=== PATIENT | male | born 1960 | race Caucasian/White ===

== ENCOUNTER → 2024-03-15 13:46 | Outpatient (CLI) | payer OTHER, SELFPAY ==
--- NOTE | 2024-03-15 | PATH_ITS ---
[facility] Accession Number: [id number] No. of containers..01 Tissue . 01 Material submitted: . submandibular gland - RIGHT SUBMANDIBULAR MASS . 01 Diagnosis: RIGHT SUBMANDIBULAR MASS, NEEDLE CORE BIOPSIES: Benign salivary gland tissue with patchy fibrosis and mild chronic inflammation, suggestive of mild chronic sialadenitis, please see microscopic description. No lymph node is present. MRV 03/17/2024 1452 Local . 01 Comment: As part of ongoing construction quality control manager, this case is also reviewed by Dr. Lianna Telles, who agrees with the interpretation. . 01 Electronically signed: . Elkin Ji MD, Pathologist NPI- [id number] . 01 Gross description: . Received in formalin with two patient identifiers and right submandibular mass, are four lim needle cores, 0.4 to 0.7 cm in length, submitted entirely in A1. ([id number]) /MRV 03/16/2024 1847 Local . 01 Microscopic: . Microscopic examination of the submandibular mass reveals benign salivary gland parenchyma with mild chronic inflammation and patchy fibrosis. The findings overall are subtle and nonspecific, and may suggest mild chronic sialadenitis. However, clinical and radiologic correlation will be required to ensure that the biopsy is sales representative raw fibers of the area of interest. . No lymphoid tissue is present. . Concurrent flow cytometry did not reveal abnormal T-cell population (please see complete flow cytometry report #[id number], for details. . 01 Pathologist provided ICD-10: R93.89 . 01 CPT . 662647 Specimen Comment: A courtesy copy of this report has been sent to [facility] Pathology Performed at: [address] [address], [place], [place] [id number] MD Richar Jones MD Phone: [phone]
--- NOTE | 2024-03-15 | DI.US.S_ITS ---
PROCEDURE: US BIOPSY LYMPH NODE INDICATIONS: RIGHT SUBMANDIBULAR MASS. TECHNIQUE: The indications, alternatives, benefits, risks, and complications of the procedure were explained to the patient. Written informed consent was obtained and placed in the chart. Real-time sonography was utilized to choose the site for percutaneous lymph node sampling. The skin was prepped and draped in the usual sterile fashion. 1% lidocaine was infiltrated down to the site of interest. A coaxial needle was then advanced into the site of interest under direct sonographic visualization. A biopsy apparatus was then utilized, and core biopsies were obtained. The needle was then withdrawn; a bandage was applied to the biopsy site. COMPARISON: None. FINDINGS: Biopsy site(s): Enlarged right submandibular lymph node/mass. Needle: [employer] biopsy needle set. Number of passes: 5 Medications: 1% lidocaine for local anaesthesia. Complications: None. IMPRESSION: Successful ultrasound-guided right submandibular lymph node/mass biopsy, with pathology results pending. Dictated by: Pelon Sidhu M.D. on 03/15/2024 at 17:04 Approved by: Pelon Sidhu M.D. on 03/15/2024 at 17:04
== END ==
LOC: US 13:49
PROVIDERS: PCP Internal Medicine
DX: K11.8 Other diseases of salivary glands (principal); R22.1 Localized swelling, mass and lump, neck; E11.65 Type 2 diabetes mellitus with hyperglycemia; E78.2 Mixed hyperlipidemia; Z23 Encounter for immunization; Z12.5 Encounter for screening for malignant neoplasm of prostate; Z87.442 Personal history of urinary calculi
CPT/HCPCS: 38505; 76942